=== PATIENT | female | born 1990 | race African-American/Black ===

== ENCOUNTER 2017-03-19 02:09 | Emergency (ER) | payer SELFPAY ==
[~2017-03-19] VITALS: Ht 167.6 cm; Wt 50.0 kg
[2017-03-19 02:09] VITALS: TEMP 97
[2017-03-19] MEDS ORDERED: MIRENA52 MG IY (02:22)
[2017-03-19 02:26] LABS: INR 1.4 (0.8-3.0); PROTHROMBIN TIME 15.6 SECONDS (9.7-12.8)
[2017-03-19 02:54] LABS: BASO % 0.3 % (0.0-2.0); EOS % 0.4 % (0-4.0); GRAN # 4.7 (1.4-6.5); GRAN % 60.4 % (42.2-75.2); HEMATOCRIT 39.9 % (37.0-47.0); HEMOGLOBIN 13.1 g/dl (12.5-16.0); LYMPH # 2.5 (1.2-3.4); LYMPH % 32.3 % (20.0-51.0); MEAN CELL VOLUME 91 fl (80.0-100.0); MEAN CORPUSCULAR HEMOGLOBIN 30 pg (27.0-31.0); MEAN CORPUSCULAR HGB CONC 33 g/dl (33.0-37.0); MEAN PLATELET VOLUME 9.3 fl (7.4-10.4); MONO # 0.5 (0.1-0.6); MONO % 6.2 % (1.7-9.3); PLATELET COUNT 201 K/mm3 (130-400); RED BLOOD COUNT 4.41 M/mm3 (4.10-5.30); REDCELL DISTRIBUTION WIDTH-CV 13.7 % (11.5-14.5); WHITE BLOOD COUNT 7.8 K/mm3 (4.8-10.8)
[2017-03-19 03:08] LABS: ADJUSTED CALCIUM 8.5 mg/dL (8.4-10.2); ALBUMIN 4.1 gm/dL (3.5-5.0); BILIRUBIN,TOTAL 0.3 mg/dL (0.0-1.0); CALCIUM 8.6 mg/dL (8.4-10.2); CREATININE, serum 0.67 mg/dL (0.52-1.25); POTASSIUM 3.8 mmol/L (3.4-5.0); TOTAL PROTEIN 6.8 gm/dL (6.4-8.2)
[2017-03-19 03:11] LABS: PH 5 (5-8); SQUAMOUS EPITHELIAL None Seen /hpf; URINE APPEARANCE Clear; URINE BACTERIA Rare /hpf; URINE BILIRUBIN Negative (NEGATIVE); URINE BLOOD 1+ (NEGATIVE); URINE COLOR Straw; URINE GLUCOSE Negative (NEGATIVE); URINE KETONE Negative (NEGATIVE); URINE RBC 0-2 /hpf; URINE UROBILINOGEN Negative (NEGATIVE); URINE WBC 0-2 /hpf
[2017-03-19] MEDS ORDERED: PERCOCET 325 MG1 TA2 PO (03:45)
[2017-03-19] MEDS ORDERED: CRUTCHES MC (03:45)
[2017-03-19] MEDS ORDERED: DULCOLAX STOOL100 MG PO (03:45)
[2017-03-19 04:00] VITALS: BP 135/76; PULSE 114
== END 2017-03-19 04:25 | disposition home or self-care (01) ==
LOC: COL.ER 02:09
PROVIDERS: Emergency Medicine
DX: S71.001A Unspecified open wound, right hip, initial encounter (principal); W34.00XA Accidental discharge from unspecified firearms or gun, initial encounter; Y92.59 Other trade areas as the place of occurrence of the external cause
CPT/HCPCS: J2270; J2405; J3010; J7030; Q9967

== ENCOUNTER 2019-06-22 21:42 | Emergency (ER) | payer OTHER ==
[~2019-06-22] VITALS: Ht 167.6 cm; Wt 49.1 kg
[~2019-06-22 21:42] MED LIST: CRUTCHES MC; DULCOLAX STOOL100 MG PO; MIRENA52 MG IY; PERCOCET 325 MG1 TA2 PO
[2019-06-22 21:47] VITALS: BP 132/78
[2019-06-22] MEDS ORDERED: PERCOCET 325 MG1 TA2 PO (22:04)
[2019-06-22 22:33] VITALS: PULSE 75; TEMP 98.5
== END 2019-06-22 22:34 | disposition home or self-care (01) ==
LOC: COL.ER 21:42
DX: K02.9 Dental caries, unspecified (principal)
CPT/HCPCS: J1170

== ENCOUNTER 2019-11-03 17:22 | Emergency (ER) | payer OTHER ==
[~2019-11-03] VITALS: Ht 167.6 cm; Wt 50.0 kg
[~2019-11-03 17:22] MED LIST changes: +PRENATAL TABLET PO
[2019-11-03 17:35] VITALS: TEMP 98.1
[2019-11-03 19:10] LABS: COLLECTION METHOD CLEAN CATCH
[2019-11-03 19:14] LABS: BASO % 0.2 % (0.0-2.0); EOS # 0.1 (0.0-0.7); EOS % 0.8 % (0-4.0); GRAN # 5.9 (1.4-6.5); GRAN % 70.1 % (42.2-75.2); HEMATOCRIT 38.2 % (37.0-47.0); HEMOGLOBIN 12.1 g/dl (12.5-16.0); LYMPH # 1.7 (1.2-3.4); LYMPH % 20.3 % (20.0-51.0); MEAN CELL VOLUME 94 fl (80.0-100.0); MEAN CORPUSCULAR HEMOGLOBIN 30 pg (27.0-31.0); MEAN CORPUSCULAR HGB CONC 32 g/dl (33.0-37.0); MEAN PLATELET VOLUME 10.7 fl (7.4-10.4); MONO # 0.7 (0.1-0.6); MONO % 8.1 % (1.7-9.3); PLATELET COUNT 301 K/mm3 (130-400); RED BLOOD COUNT 4.08 M/mm3 (4.10-5.30); REDCELL DISTRIBUTION WIDTH-CV 14.4 % (11.5-14.5)
[2019-11-03 19:17] LABS: MUCOUS Present /lpf; PH 6 (5-8); SQUAMOUS EPITHELIAL 0-2 /hpf; URINE APPEARANCE Clear; URINE BACTERIA Rare /hpf; URINE BILIRUBIN Negative (NEGATIVE); URINE BLOOD Negative (NEGATIVE); URINE COLOR Yellow; URINE GLUCOSE Negative (NEGATIVE); URINE KETONE 1+ (NEGATIVE); URINE LEUKOCYTE ESTERASE Negative (NEGATIVE); URINE NITRATE Negative (NEGATIVE); URINE PROTEIN(semi-quant) Negative (NEGATIVE); URINE RBC 0-2 /hpf; URINE UROBILINOGEN Negative (NEGATIVE)
[2019-11-03 19:24] LABS: ALBUMIN 4.1 gm/dL (3.5-5.0); BILIRUBIN,TOTAL 0.4 mg/dL (0.0-1.0); CALCIUM 9.2 mg/dL (8.4-10.2); CREATININE, serum 0.41 (0.52-1.25); POTASSIUM 3.4 mmol/L (3.4-5.0); TOTAL PROTEIN 7.2 gm/dL (6.4-8.2)
[2019-11-03] MEDS ORDERED: PHENERGAN 25 TA25 MG PO (20:13)
[2019-11-03 20:52] VITALS: BP 101/59; PULSE 78
== END 2019-11-03 21:00 | disposition home or self-care (01) ==
LOC: COL.ER 17:22
PROVIDERS: Nurse Practitioner
DX: O21.9 Vomiting of pregnancy, unspecified (principal); O99.341 Other mental disorders complicating pregnancy, first trimester; F32.9 Major depressive disorder, single episode, unspecified; Z87.891 Personal history of nicotine dependence; Z3A.10 10 weeks gestation of pregnancy
CPT/HCPCS: J2550; J7030

== ENCOUNTER 2020-01-01 11:22 | Emergency (ER) | payer OTHER ==
[~2020-01-01] VITALS: Ht 167.6 cm; Wt 56.8 kg
[~2020-01-01 11:22] MED LIST changes: +PHENERGAN 25 TA25 MG PO
[2020-01-01 11:26] VITALS: BP 119/80; TEMP 97.9
[2020-01-01 11:43] LABS: COLLECTION METHOD CLEAN CATCH
[2020-01-01 11:54] LABS: MUCOUS Present /lpf; PH 7 (5-8); URINE APPEARANCE Hazy; URINE BACTERIA Rare /hpf; URINE BILIRUBIN Negative (NEGATIVE); URINE BLOOD Negative (NEGATIVE); URINE COLOR Yellow; URINE GLUCOSE Negative (NEGATIVE); URINE KETONE Negative (NEGATIVE); URINE LEUKOCYTE ESTERASE Negative (NEGATIVE); URINE NITRATE Negative (NEGATIVE); URINE PROTEIN(semi-quant) Negative (NEGATIVE); URINE UROBILINOGEN Negative (NEGATIVE)
[2020-01-01] MEDS ORDERED: CEPHALEXIN500 M1 PO (12:12)
[2020-01-01 12:35] VITALS: PULSE 78
== END 2020-01-01 12:35 | disposition home or self-care (01) ==
LOC: COL.ER 11:22
PROVIDERS: Emergency Medicine
DX: O26.892 Other specified pregnancy related conditions, second trimester (principal); O99.332 Smoking (tobacco) complicating pregnancy, second trimester; R10.2 Pelvic and perineal pain; F17.210 Nicotine dependence, cigarettes, uncomplicated; Z98.890 Other specified postprocedural states; Z3A.18 18 weeks gestation of pregnancy

== ENCOUNTER 2020-02-29 12:52 | Outpatient (CLI) | payer OTHER ==
[~2020-02-29] VITALS: Ht 167.6 cm; Wt 60.5 kg
[~2020-02-29 12:52] MED LIST changes: +CEPHALEXIN500 M1 PO
[2020-02-29 13:12] VITALS: BP 119/74; PULSE 78; TEMP 98
--- NOTE | 2020-02-29 13:20 | NUR ---
Patient ambulatory to unit alone. Patient currently seeing Armando Landeros CNM in [place]. Patient here with complaint of Upper right quadrant pain (under her ribs), leaking fluid, headache and spots in her vision (stars). Patient states EDC 05/26/2020. Denies any complications with her care. G3L2. Patient states she has had 1 and 1 emergent c/s for placental abruption. Patient states baby has been active. FHR and contraction monitors placed and explained. SVE by Abena Ratliff RN closed/thick/posterior, amniotest negative. Assessment completed and Dr. West called, orders obtained.
--- NOTE | 2020-02-29 13:30 | NUR ---
1328: FHR baseline 150 bpm, FHR deceleration down to 120-125 bpm while moving and getting out of bed for UA.
[2020-02-29 13:45] VITALS: BP 120/70; PULSE 73
[2020-02-29 14:04] LABS: BASO % 0.3 % (0.0-2.0); EOS # 0.1 (0.0-0.7); EOS % 0.8 % (0-4.0); GRAN # 5.3 (1.4-6.5); GRAN % 74.3 % (42.2-75.2); HEMATOCRIT 36.3 % (37.0-47.0); HEMOGLOBIN 12.3 g/dl (12.5-16.0); LYMPH # 1.2 (1.2-3.4); LYMPH % 16.3 % (20.0-51.0); MEAN CELL VOLUME 90 fl (80.0-100.0); MEAN CORPUSCULAR HEMOGLOBIN 30 pg (27.0-31.0); MEAN CORPUSCULAR HGB CONC 34 g/dl (33.0-37.0); MEAN PLATELET VOLUME 11.1 fl (7.4-10.4); MONO # 0.6 (0.1-0.6); MONO % 7.9 % (1.7-9.3); PLATELET COUNT 158 K/mm3 (130-400); RED BLOOD COUNT 4.05 M/mm3 (4.10-5.30); REDCELL DISTRIBUTION WIDTH-CV 13.6 % (11.5-14.5)
[2020-02-29 14:13] LABS: COLLECTION METHOD CLEAN CATCH; TRICYCLIC ANTIDEPRESS URINE NEGATIVE
[2020-02-29 14:15] VITALS: BP 114/67; PULSE 68
[2020-02-29 14:17] LABS: ALBUMIN 3.7 gm/dL (3.5-5.0); BILIRUBIN,TOTAL 0.5 mg/dL (0.0-1.0); CREATININE, serum 0.53 (0.52-1.25); POTASSIUM 3.2 mmol/L (3.4-5.0); TOTAL PROTEIN 6.8 gm/dL (6.4-8.2)
[2020-02-29 14:20] LABS: MUCOUS Present /lpf; PH 7 (5-8); URINE APPEARANCE Hazy; URINE BACTERIA Rare /hpf; URINE BILIRUBIN Negative (NEGATIVE); URINE BLOOD Negative (NEGATIVE); URINE COLOR Yellow; URINE GLUCOSE Negative (NEGATIVE); URINE KETONE Negative (NEGATIVE); URINE LEUKOCYTE ESTERASE Negative (NEGATIVE); URINE NITRATE Negative (NEGATIVE); URINE PROTEIN(semi-quant) Negative (NEGATIVE); URINE RBC 0-2 /hpf; URINE UROBILINOGEN Negative (NEGATIVE); URINE WBC 0-2 /hpf
--- NOTE | 2020-02-29 14:25 | NUR ---
Patient states she is "feeling better than she was earlier" and denies any concerning symptoms at this time.
[2020-02-29 14:43] VITALS: BP 120/73; PULSE 75
== END 2020-02-29 14:50 | disposition home or self-care (01) ==
LOC: LDRO 12:52 → COL.ER 12:52 → EDSTATUS 13:04 → LDR 13:26 → LDRO 14:50
PROVIDERS: Obstetrics & Gynecology
DX: O42.912 Preterm premature rupture of membranes, unspecified as to length of time between rupture and onset of labor, second trimester (principal); O26.892 Other specified pregnancy related conditions, second trimester; R10.11 Right upper quadrant pain; Z3A.27 27 weeks gestation of pregnancy; F17.210 Nicotine dependence, cigarettes, uncomplicated